=== PATIENT | female | born 1940 | race Caucasian/White ===

== ENCOUNTER 2023-09-26 22:15 | Inpatient (IN) ==
[2023-09-26 23:28] LABS: ABS Lymphocytes 0.5 10^3/uL (1.0-4.8); ABS Monocytes 0.9 10^3/uL (0.0-0.9); ABS Neutrophils 4.7 10^3/uL (1.5-7.6); Hematocrit 35.8 % (35-45); Hemoglobin 12.2 g/dL (11.5-14.3); Lymphocyte % 8.4 %; Mean Corpuscular Hemoglobin 32.1 pg (27-33); Mean Corpuscular Hgb Conc 33.9 g/dL (31-36); Mean Corpuscular Volume 94.7 fL (80-97); Mean Platelet Volume 8.2 fL (7.5-11.2); Nucleated Red Blood Cells % 0.1 %/100WBC (0.0-0.8); Platelet Count 143 10^3/uL (150-450); Red Blood Count 3.78 10^6/uL (3.63-4.92); Red Cell Distribution Width 15.7 % (12-17); White Blood Count 6.1 10^3/uL (3.8-11.8)
[2023-09-26 23:45] LABS: Albumin 3.4 g/dL (3.2-5.2); Albumin/Globulin Ratio 0.9 (1-3); Calcium 8.9 mg/dL (8.6-10.3); Creatinine, Serum 1.15 mg/dL (0.51-0.95); Globulin 3.9 g/dL (2-4); Magnesium 1.4 mg/dL (1.9-2.7); Total Bilirubin 0.6 mg/dL (0.2-1.0); Total Protein 7.3 g/dL (6.4-8.9); eGFR CKD-EPI 47.3 (>60)
[2023-09-27] MEDS ORDERED: Lactated Ringers 1000 ml BAG 1,000 ML IV ONE ×2 (00:14→01:42)
[2023-09-27 00:33] LABS: Urine Appearance Cloudy; Urine Bilirubin Negative (Negative); Urine Blood 1+ (Negative); Urine Color Amber; Urine Glucose Negative (Negative); Urine Ketones Negative (Negative); Urine Nitrite Negative (Negative); Urine Protein 2+(100 mg/dL) (Negative); Urine Specific Gravity 1.023 (1.002-1.030); Urine Urobilinogen Negative (Negative)
[2023-09-27 00:54] LABS: High Sensitivity Troponin 1 Hr 71 pg/mL (<15)
[2023-09-27 00:59] LABS: Urine Bacteria 3+ (Absent); Urine Red Blood Cell 2+(6-10/hpf) (Absent); Urine Squamous Epithelial Cell Present (Absent); Urine White Blood Cell 1+(6-10/hpf) (Absent)
[2023-09-27] MEDS ORDERED: Polyethylene Glycol 3350 17 GM PACKET PO PRN (03:02)
[2023-09-27] MEDS ORDERED: Senna TAB 8.6 mg TAB PO PRN (03:02)
[2023-09-27] MEDS ORDERED: Albuterol HFA INHALER 8 gm MDI INH PRN (03:08)
[2023-09-27] MEDS ORDERED: Remdesivir 100 mg Vial 200 MG in NS 0.9% 250 ml 210 ML IV ONE (08:00)
[2023-09-27 09:19] LABS: INR 1.72 (0.83-1.13)
[2023-09-27 09:21] LABS: Albumin 2.8 g/dL (3.2-5.2); Albumin/Globulin Ratio 0.9 (1-3); Calcium 7.9 mg/dL (8.6-10.3); Creatinine, Serum 1.05 mg/dL (0.51-0.95); Potassium 4.1 mmol/L (3.5-5.0); Total Bilirubin 0.5 mg/dL (0.2-1.0); Total Protein 5.8 g/dL (6.4-8.9); eGFR CKD-EPI 52.7 (>60)
[2023-09-27] MEDS: Aspirin EC 81 mg TAB.EC (enteric coated) PO SCH (11:16)
[2023-09-28 06:02] LABS: INR 1.65 (0.83-1.13)
[2023-09-28 06:45] LABS: ABS Lymphocytes 0.4 10^3/uL (1.0-4.8); ABS Monocytes 0.2 10^3/uL (0.0-0.9); ABS Neutrophils 2.5 10^3/uL (1.5-7.6); Hematocrit 32.9 % (35-45); Hemoglobin 11.1 g/dL (11.5-14.3); Lymphocyte % 13.8 %; Mean Corpuscular Hemoglobin 31.6 pg (27-33); Mean Corpuscular Hgb Conc 33.7 g/dL (31-36); Mean Corpuscular Volume 93.8 fL (80-97); Mean Platelet Volume 8.6 fL (7.5-11.2); Nucleated Red Blood Cells % 0.1 %/100WBC (0.0-0.8); Platelet Count 108 10^3/uL (150-450); Red Cell Distribution Width 15.4 % (12-17); White Blood Count 3.2 10^3/uL (3.8-11.8)
[2023-09-28 06:57] LABS: Albumin 2.9 g/dL (3.2-5.2); Albumin/Globulin Ratio 0.9 (1-3); Calcium 8.4 mg/dL (8.6-10.3); Creatinine, Serum 1.01 mg/dL (0.51-0.95); Globulin 3.2 g/dL (2-4); Potassium 4.2 mmol/L (3.5-5.0); Total Bilirubin 0.3 mg/dL (0.2-1.0); Total Protein 6.1 g/dL (6.4-8.9); eGFR CKD-EPI 55.2 (>60)
[2023-09-28] MEDS: Aspirin EC 81 mg TAB.EC (enteric coated) PO SCH (10:00)
[2023-09-28] MEDS: Remdesivir 100 mg Vial 100 MG in NS 0.9% 250 ml 230 ML IV SCH (10:01)
[2023-09-28] MEDS: cefTRIAXone 1 gm/50 mL D5W 1 GM/50 ML BAG IV SCH (15:31)
[2023-09-29 07:47] LABS: Hematocrit 31.9 % (35-45); Mean Corpuscular Hemoglobin 32.4 pg (27-33); Mean Corpuscular Hgb Conc 34.5 g/dL (31-36); Mean Corpuscular Volume 94.1 fL (80-97); Mean Platelet Volume 8.1 fL (7.5-11.2); Platelet Count 126 10^3/uL (150-450); Red Blood Count 3.39 10^6/uL (3.63-4.92); Red Cell Distribution Width 15.4 % (12-17); White Blood Count 6.2 10^3/uL (3.8-11.8)
[2023-09-29 07:54] LABS: INR 1.58 (0.83-1.13)
[2023-09-29 08:02] LABS: Albumin 2.9 g/dL (3.2-5.2); Albumin/Globulin Ratio 0.9 (1-3); Calcium 8.4 mg/dL (8.6-10.3); Creatinine, Serum 0.93 mg/dL (0.51-0.95); Globulin 3.2 g/dL (2-4); Potassium 4.2 mmol/L (3.5-5.0); Total Bilirubin 0.3 mg/dL (0.2-1.0); Total Protein 6.1 g/dL (6.4-8.9)
[2023-09-29] MEDS: Remdesivir 100 mg Vial 100 MG in NS 0.9% 250 ml 230 ML IV SCH (09:19)
[2023-09-29] MEDS: Aspirin EC 81 mg TAB.EC (enteric coated) PO SCH (09:21)
[2023-09-29] MEDS: cefTRIAXone 1 gm/50 mL D5W 1 GM/50 ML BAG IV SCH (13:05)
[2023-09-30] MEDS: Remdesivir 100 mg Vial 100 MG in NS 0.9% 250 ml 230 ML IV SCH (08:52)
[2023-09-30] MEDS: Aspirin EC 81 mg TAB.EC (enteric coated) PO SCH (08:55)
[2023-09-30 10:54] LABS: INR 1.76 (0.83-1.13)
[2023-09-30 11:32] LABS: Albumin 2.6 g/dL (3.2-5.2); Albumin/Globulin Ratio 0.9 (1-3); Calcium 7.9 mg/dL (8.6-10.3); Creatinine, Serum 0.93 mg/dL (0.51-0.95); Total Bilirubin 0.3 mg/dL (0.2-1.0); Total Protein 5.6 g/dL (6.4-8.9)
[2023-09-30] MEDS: cefTRIAXone 1 gm/50 mL D5W 1 GM/50 ML BAG IV SCH (14:30)
[2023-09-30 18:25] LABS: ABS Lymphocytes 0.5 10^3/uL (1.0-4.8); ABS Monocytes 0.3 10^3/uL (0.0-0.9); ABS Neutrophils 4.1 10^3/uL (1.5-7.6); ABS Nucleated RBC 0.01 10^3/ul; Hematocrit 31.3 % (35-45); Hemoglobin 10.8 g/dL (11.5-14.3); Lymphocyte % 10.7 %; Mean Corpuscular Hemoglobin 32.2 pg (27-33); Mean Corpuscular Hgb Conc 34.5 g/dL (31-36); Mean Corpuscular Volume 93.4 fL (80-97); Mean Platelet Volume 8.8 fL (7.5-11.2); Nucleated Red Blood Cells % 0.1 %/100WBC (0.0-0.8); Platelet Count 128 10^3/uL (150-450); Red Blood Count 3.35 10^6/uL (3.63-4.92); Red Cell Distribution Width 15.3 % (12-17); White Blood Count 4.9 10^3/uL (3.8-11.8)
[2023-09-30 18:26] LABS: Calcium 8.1 mg/dL (8.6-10.3); Creatinine, Serum 0.99 mg/dL (0.51-0.95); Potassium 4.6 mmol/L (3.5-5.0); eGFR CKD-EPI 56.6 (>60)
[2023-10-01 08:08] LABS: INR 1.72 (0.83-1.13)
[2023-10-01 08:34] LABS: Albumin 2.6 g/dL (3.2-5.2); Albumin/Globulin Ratio 0.9 (1-3); Calcium 7.8 mg/dL (8.6-10.3); Creatinine, Serum 0.91 mg/dL (0.51-0.95); Potassium 4.1 mmol/L (3.5-5.0); Total Bilirubin 0.3 mg/dL (0.2-1.0); Total Protein 5.6 g/dL (6.4-8.9); eGFR CKD-EPI 62.6 (>60)
[2023-10-01] MEDS: Aspirin EC 81 mg TAB.EC (enteric coated) PO SCH (08:46)
[2023-10-01] MEDS: Remdesivir 100 mg Vial 100 MG in NS 0.9% 250 ml 230 ML IV SCH (08:47)
[2023-10-01] MEDS: cefTRIAXone 1 gm/50 mL D5W 1 GM/50 ML BAG IV SCH (13:55)
[2023-10-01] MEDS ORDERED: Lactated Ringers 1000 ml BAG 1,000 ML IV ONE (17:05)
[2023-10-02 07:06] LABS: Hematocrit 32.1 % (35-45); Mean Corpuscular Hemoglobin 31.7 pg (27-33); Mean Corpuscular Hgb Conc 34.2 g/dL (31-36); Mean Corpuscular Volume 92.9 fL (80-97); Mean Platelet Volume 8.9 fL (7.5-11.2); Platelet Count 128 10^3/uL (150-450); Red Blood Count 3.46 10^6/uL (3.63-4.92); Red Cell Distribution Width 15.1 % (12-17); White Blood Count 6.4 10^3/uL (3.8-11.8)
[2023-10-02 07:12] LABS: INR 2.13 (0.83-1.13)
[2023-10-02 07:32] LABS: Albumin 2.6 g/dL (3.2-5.2); Albumin/Globulin Ratio 0.9 (1-3); Calcium 7.6 mg/dL (8.6-10.3); Creatinine, Serum 0.86 mg/dL (0.51-0.95); Globulin 2.9 g/dL (2-4); Magnesium 1.4 mg/dL (1.9-2.7); Potassium 4.4 mmol/L (3.5-5.0); Total Bilirubin 0.4 mg/dL (0.2-1.0); Total Protein 5.5 g/dL (6.4-8.9)
[2023-10-02] MEDS: Aspirin EC 81 mg TAB.EC (enteric coated) PO SCH (07:55)
[2023-10-02] MEDS ORDERED: Magnesium Sulfate 2 gm BAG 2 GM/50 ML BAG IVPB ONE (08:00)
[2023-10-02] MEDS: cefTRIAXone 1 gm/50 mL D5W 1 GM/50 ML BAG IV SCH (14:09)
[2023-10-03] MEDS: Aspirin EC 81 mg TAB.EC (enteric coated) PO SCH (09:24)
[2023-10-03 10:02] VITALS: BP 114/66
[2023-10-03 12:11] LABS: Calcium 8.1 mg/dL (8.6-10.3); Creatinine, Serum 0.86 mg/dL (0.51-0.95); Magnesium 1.8 mg/dL (1.9-2.7); Potassium 4.2 mmol/L (3.5-5.0)
== END 2023-10-03 13:16 | disposition swing bed (61) | DRG 177 ==
LOC: ED 22:15 → EDHOLD 22:15 → MED 09-27 08:01 → SUATTDRO 09-27 10:00 → MED 09-29 16:00
PROVIDERS: ADMIT Internal Medicine; ATTEND Student in an Organized Health Care Education/Training Program

== ENCOUNTER 2024-09-27 19:03 | Inpatient (IN) ==
[2024-09-27] MEDS: Lactated Ringers 1000 ml BAG 1,000 ML IV ONE (20:00)
[2024-09-27 20:30] LABS: ABS Basophils 0.1 10^3/uL (0.0-0.1); ABS Lymphocytes 0.6 10^3/uL (1.0-4.8); ABS Monocytes 0.8 10^3/uL (0.0-0.9); ABS Neutrophils 10.3 10^3/uL (1.5-7.6); ABS Nucleated RBC 0.01 10^3/ul; Eosinophil % 0.1 %; Hematocrit 38.3 % (35-45); Hemoglobin 12.6 g/dL (11.5-14.3); Lymphocyte % 4.8 %; Mean Corpuscular Hemoglobin 29.7 pg (27-33); Mean Corpuscular Volume 90.1 fL (80-97); Mean Platelet Volume 8.2 fL (7.5-11.2); Nucleated Red Blood Cells % 0.1 %/100WBC (0.0-0.8); Platelet Count 182 10^3/uL (150-450); Red Blood Count 4.26 10^6/uL (3.63-4.92); White Blood Count 11.7 10^3/uL (3.8-11.8)
[2024-09-27 20:53] LABS: Albumin 3.5 g/dL (3.2-5.2); Calcium 9.2 mg/dL (8.6-10.3); Creatinine, Serum 1.13 mg/dL (0.51-0.95); Globulin 3.4 g/dL (2-4); Potassium 3.8 mmol/L (3.5-5.0); Total Bilirubin 0.8 mg/dL (0.2-1.0); Total Protein 6.9 g/dL (6.4-8.9)
[2024-09-27 22:02] LABS: Urine Appearance Extra Turbid; Urine Bilirubin Negative (Negative); Urine Blood 2+ (Negative); Urine Glucose Negative (Negative); Urine Ketones Trace (Negative); Urine Nitrite 1+ (Negative); Urine Protein 1+ (>=30 mg/dL) (Negative); Urine Specific Gravity 1.027 (1.002-1.030); Urine Urobilinogen 1+ (Negative); Urine pH 5.5 (5.0-8.0)
[2024-09-27 22:11] LABS: Urine Bacteria 1+ /HPF (Absent); Urine Red Blood Cell Trace(0-2/hpf) /HPF (0-Trace); Urine Squamous Epithelial Cell Present /HPF (Absent); Urine White Blood Cell 3+(>20/hpf) /HPF (0-Trace)
[2024-09-27 22:12] LABS: Urine Color Yellow
[2024-09-27] MEDS: cefTRIAXone 1 gm/50 mL D5W 1 GM/50 ML BAG IV ONE (22:13)
[2024-09-27] MEDS ORDERED: Dextrose 50% Syringe 50 ml 25 GM/50 ML SYRINGE IV PUSH PRN (23:50)
[2024-09-28] MEDS: Aspirin EC 81 mg TAB.EC (enteric coated) PO SCH (07:34)
[2024-09-28 10:26] LABS: Calcium 8.6 mg/dL (8.6-10.3); Creatinine, Serum 1.23 mg/dL (0.51-0.95); Potassium 3.4 mmol/L (3.5-5.0); eGFR CKD-EPI 43.3 (>60)
[2024-09-28 10:41] LABS: TSH Ultra Thyroid Stim Horm 4.82 mcIU/mL (0.34-5.60)
[2024-09-28] MEDS: Lactated Ringers 1000 ml BAG 1,000 ML IV SCH (18:39)
[2024-09-28] MEDS: cefTRIAXone 1 gm/50 mL D5W 1 GM/50 ML BAG IV SCH (21:56)
[2024-09-28] MEDS ORDERED: cefTRIAXone 1 gm/50 mL D5W 1 GM/50 ML BAG IV SCH (22:00)
[2024-09-28] MEDS: Ondansetron 4 mg VIAL 2 MG/ML 2 ml VIAL IV ONE (23:39)
[2024-09-29 05:25] LABS: ABS Basophils 0.1 10^3/uL (0.0-0.1); ABS Lymphocytes 0.5 10^3/uL (1.0-4.8); ABS Monocytes 0.8 10^3/uL (0.0-0.9); ABS Neutrophils 8.8 10^3/uL (1.5-7.6); Eosinophil % 0.1 %; Hemoglobin 11.5 g/dL (11.5-14.3); Lymphocyte % 5.3 %; Mean Corpuscular Hemoglobin 30.2 pg (27-33); Mean Corpuscular Hgb Conc 33.8 g/dL (31-36); Mean Corpuscular Volume 89.3 fL (80-97); Platelet Count 123 10^3/uL (150-450); Red Blood Count 3.81 10^6/uL (3.63-4.92); Red Cell Distribution Width 14.9 % (12-17); White Blood Count 10.2 10^3/uL (3.8-11.8)
[2024-09-29 05:46] LABS: INR 1.46 (0.85-1.14)
[2024-09-29 05:48] LABS: Albumin 2.8 g/dL (3.2-5.2); Calcium 8.2 mg/dL (8.6-10.3); Creatinine, Serum 1.13 mg/dL (0.51-0.95); Globulin 2.7 g/dL (2-4); Potassium 3.7 mmol/L (3.5-5.0); Total Bilirubin 0.4 mg/dL (0.2-1.0); Total Protein 5.5 g/dL (6.4-8.9)
[2024-09-29] MEDS: Iodixanol 320 (CONTRAST) 100 ML SDV IV SCH (05:57)
[2024-09-29 17:35] LABS: Urine Appearance Clear; Urine Bacteria Absent /HPF (Absent); Urine Bilirubin Negative (Negative); Urine Blood 2+ (Negative); Urine Color Yellow; Urine Glucose Negative (Negative); Urine Ketones Trace (Negative); Urine Nitrite Negative (Negative); Urine Protein 2+ (>=100 mg/dL) (Negative); Urine Red Blood Cell 2+(6-10/hpf) /HPF (0-Trace); Urine Specific Gravity >1.050 (1.002-1.030); Urine Squamous Epithelial Cell Present /HPF (Absent); Urine Urobilinogen Negative (Negative); Urine White Blood Cell Absent /HPF (0-Trace); Urine pH 6.5 (5.0-8.0)
[2024-10-01 09:54] VITALS: BP 101/59
== END 2024-10-01 11:45 | DRG 690 ==
LOC: ED 19:03 → SUATTDRO 23:47 → EDHOLD 23:47 → MED 09-28 04:07
PROVIDERS: ADMIT Internal Medicine; ATTEND Internal Medicine

== ENCOUNTER 2024-11-21 12:08 | Inpatient (IN) ==
[2024-11-21] MEDS: Iodixanol 320 (CONTRAST) 100 ML SDV IV ONE (12:21)
[2024-11-21 12:25] LABS: ABS Lymphocytes 0.6 10^3/uL (1.0-4.8); ABS Monocytes 1.2 10^3/uL (0.0-0.9); ABS Nucleated RBC 0.01 10^3/ul; Hematocrit 39.1 % (35-45); Lymphocyte % 4.7 %; Mean Corpuscular Hemoglobin 31.1 pg (27-33); Mean Corpuscular Hgb Conc 33.3 g/dL (31-36); Mean Corpuscular Volume 93.2 fL (80-97); Nucleated Red Blood Cells % 0.1 %/100WBC (0.0-0.8); Platelet Count 201 10^3/uL (150-450); Red Blood Count 4.19 10^6/uL (3.63-4.92); Red Cell Distribution Width 15.6 % (12-17); White Blood Count 11.8 10^3/uL (3.8-11.8)
[2024-11-21 12:39] LABS: Activated Partial Thrombo Time 24.2 seconds (26.0-38.0); INR 1.18 (0.85-1.14)
[2024-11-21 12:46] LABS: Albumin 3.6 g/dL (3.5-5.7); Calcium 9.2 mg/dL (8.6-10.3); Creatinine, Serum 1.35 mg/dL (0.51-0.95); Direct Bilirubin 0.1 mg/dL (0.03-0.18); Globulin 3.6 g/dL (2-4); Indirect Bilirubin 0.7 mg/dL (0.3-1.0); Potassium 4.6 mmol/L (3.5-5.0); Total Bilirubin 0.8 mg/dL (0.2-1.0); Total Protein 7.2 g/dL (6.4-8.9); eGFR CKD-EPI 38.8 (>60)
[2024-11-21] MEDS: Lactated Ringers 1000 ml BAG 1,000 ML IV ONE ×2 (14:29→15:44)
[2024-11-21] MEDS ORDERED: Lorazepam PYXIS KEY PRN (17:01)
[2024-11-21] MEDS: Acetaminophen IV 1 GM/100ML 1,000 MG/100 ML BAG IV ONE (20:28)
[2024-11-21] MEDS: LORazepam 2 mg VIAL 1 ml IV PUSH PRN (21:16)
[2024-11-21 21:56] VITALS: BP 126/87
[2024-11-22] MEDS: Morphine 2 MG/ML SYRINGE IV PRN (00:43)
[2024-11-23] MEDS: Morphine ORAL CONCENTRATE 5 MG/0.25 ML ORAL.SYRIN PO PRN (22:25)
[2024-11-25] MEDS: Atropine 1% (ORAL/SL) 15 ML BTL SL PRN (13:31)
[2024-11-26 10:35] LABS: Rapid COVID-19 Molecular Undetected (Undetected)
[2024-11-27] MEDS: Morphine ORAL CONCENTRATE 5 MG/0.25 ML ORAL.SYRIN PO PRN ×2 (09:58→14:35)
== END 2024-11-27 21:20 | disposition expired | DRG 65 ==
LOC: ED 12:08 → EDHOLD 12:08 → SUATTDRO 14:14 → OBSVTOIN 14:14 → MED 20:31
PROVIDERS: ADMIT Student in an Organized Health Care Education/Training Program; ATTEND Student in an Organized Health Care Education/Training Program